=== PATIENT | male | born 1960 | race Caucasian/White ===

== ENCOUNTER 2021-10-12 14:57 | Inpatient (IN) | payer MEDICAID, OTHER ==
[~2021-10-12] VITALS: Ht 175.3 cm; Wt 31.8 kg
[2021-10-12 15:42] LABS: Basophils # (auto) 0 10 ^3/uL (0-0.2); Basophils % (auto) 0.2 % (0.0-2.0); Eosinophils # (auto) 0 10 ^3/uL (0-0.8); Hematocrit 38.8 % (41.0-53.0); Hemoglobin 13.8 g/dL (13.5-17.5); Lymphocytes # (auto) 0.7 10 ^3/uL (0.4-5.4); Lymphocytes % (auto) 6.8 % (10.0-50.0); Mean Corpuscular Hemoglobin 32.4 pg (28.0-32.0); Mean Corpuscular Hgb Conc. 35.7 g/dL (32.0-36.0); Mean Corpuscular Volume 90.9 fL (80.0-100.0); Monocytes # (auto) 0.3 10 ^3/uL (0-1.3); Monocytes % (auto) 3.1 % (0.0-12.0); Neutrophils # (auto) 8.9 10 ^3/uL (1.6-8.6); Neutrophils % (auto) 89.9 % (37.0-80.0); Red Blood Cells 4.27 10^6/uL (4.5-5.90); Red Cell Distribution Width 13.7 % (11.8-14.3); White Blood Cell 9.9 10^3/uL (4.4-10.8)
[2021-10-12 16:02] LABS: Albumin 2.6 g/dL (3.4-5.0); BUN/Creatinine Ratio 17.4; Calcium 8.7 mg/dL (8.5-10.1); Magnesium 2.6 mg/dL (1.6-2.6)
[2021-10-12 16:04] LABS: Bilirubin, Total 0.5 mg/dL (0.2-1.0); Total Protein 7.4 g/dL (6.4-8.2)
[2021-10-12 16:09] LABS: Potassium 2.8 mmol/L (3.5-5.1)
[2021-10-12] MEDS ORDERED: SODIUM CHLORIDE 0.9% 500 ML IV ONE (17:15)
[2021-10-12] MEDS ORDERED: ASPirin 325 MG TAB PO ONE (17:15)
[2021-10-12] MEDS ORDERED: PIPERACILLIN-TAZOB 3.375GM 100 ML IV ONE (18:45)
[2021-10-12] MEDS ORDERED: SODIUM CHLORIDE 0.9% 1,000 ML IV ONE (20:00)
[2021-10-12] MEDS ORDERED: SODIUM CHLORIDE 0.9% 1,000 ML IV SCH (20:30)
[2021-10-12] MEDS ORDERED: ONDANSETRON HCL 4 MG/2 ML VIAL IV PRN (20:45)
[2021-10-12] MEDS ORDERED: POTASSIUM CHL 20MEQ/100ML 100 ML IV ONE (20:45)
[2021-10-12] MEDS ORDERED: ACETAMINOPHEN 325 MG TAB PO PRN (20:45)
[2021-10-12] MEDS ORDERED: hydrALAZINE HCL 10 MG TAB PO PRN (20:45)
[2021-10-12] MEDS ORDERED: MORPHINE SULFATE INJ 2 MG/ml SYRG IV PRN (20:45)
[2021-10-12] MEDS ORDERED: ALBUTEROL SULF 2.5 MG/0.5ML(0.5%) NEB SOLN NEB PRN (20:45)
[2021-10-12] MEDS: PIPERACILLIN-TAZOB 3.375GM 100 ML IV SCH (22:00)
[2021-10-12] MEDS: HYDROcodone-ACET 5/325MG TAB PO PRN (22:24)
[2021-10-13] MEDS: POTASSIUM CHL 20MEQ/100ML 100 ML IV SCH ×2 (01:09→03:13)
[2021-10-13 01:55] LABS: Urine Bacteria NONE SEEN /hpf (None Seen); Urine Blood TRACE /uL (Negative); Urine Budding Yeast FEW /hpf (None Seen); Urine Hyaline Cast FEW /lpf (0 - 2); Urine Specific Gravity 1.012 (1.001-1.035); Urine WBC 7 /hpf (0 - 3)
[2021-10-13 02:36] VITALS: BP 132/78
[2021-10-13] MEDS ORDERED: POTASSIUM CHL 20MEQ/100ML 100 ML IV ONE (03:04)
[2021-10-13 03:07] LABS: Calcium 7.7 mg/dL (8.5-10.1); Potassium 3.2 mmol/L (3.5-5.1)
[2021-10-13] MEDS: SOD CHL 0.9%/ KCL 20MEQ 1,000 ML IV SCH ×3 (05:13→15:44)
[2021-10-13] MEDS: PIPERACILLIN-TAZOB 3.375GM 100 ML IV SCH ×3 (05:53→21:52)
[2021-10-13] MEDS: HYDROcodone-ACET 5/325MG TAB PO PRN ×2 (06:04→15:43)
[2021-10-13 09:09] LABS: Basophils # (auto) 0.1 10 ^3/uL (0-0.2); Basophils % (auto) 0.8 % (0.0-2.0); Eosinophils # (auto) 0 10 ^3/uL (0-0.8); Eosinophils % (auto) 0.4 % (0.0-7.0); Hematocrit 34.4 % (41.0-53.0); Hemoglobin 12.3 g/dL (13.5-17.5); Lymphocytes # (auto) 0.5 10 ^3/uL (0.4-5.4); Lymphocytes % (auto) 6.7 % (10.0-50.0); Mean Corpuscular Hemoglobin 32.6 pg (28.0-32.0); Mean Corpuscular Hgb Conc. 35.9 g/dL (32.0-36.0); Mean Corpuscular Volume 90.8 fL (80.0-100.0); Monocytes # (auto) 0.5 10 ^3/uL (0-1.3); Monocytes % (auto) 6.6 % (0.0-12.0); Neutrophils # (auto) 6.6 10 ^3/uL (1.6-8.6); Neutrophils % (auto) 85.5 % (37.0-80.0); Red Blood Cells 3.79 10^6/uL (4.5-5.90); Red Cell Distribution Width 13.6 % (11.8-14.3); White Blood Cell 7.8 10^3/uL (4.4-10.8)
[2021-10-13 09:22] LABS: Calcium 7.7 mg/dL (8.5-10.1); Potassium 3.4 mmol/L (3.5-5.1)
[2021-10-13 09:28] LABS: Albumin 2.1 g/dL (3.4-5.0); BUN/Creatinine Ratio 19.5; Bilirubin, Total 0.5 mg/dL (0.2-1.0); Total Protein 6.3 g/dL (6.4-8.2)
[2021-10-13 11:36] LABS: Creatinine, Urine 98 mg/dL (30.0-125.0); Sodium Urine 7 mmol/L (40-220)
[2021-10-13 11:37] LABS: Protein, Urine 97.4 mg/dL (0.0-11.9)
[2021-10-13 16:30] VITALS: BP 116/74
[2021-10-13] MEDS: SUCRALFATE 1 GM TAB PO SCH ×2 (17:00→21:02)
[2021-10-13] MEDS: PANTOPRAZOLE 40 MG TAB PO SCH (21:03)
[2021-10-13 22:00] VITALS: BP 119/82
[2021-10-14] VITALS (9 sets, daily range): BP systolic 137–154; BP diastolic 58–94
[2021-10-14] MEDS: SOD CHL 0.9%/ KCL 20MEQ 1,000 ML IV SCH ×3 (05:51→22:45)
[2021-10-14] MEDS: SUCRALFATE 1 GM TAB PO SCH ×4 (05:59→22:33)
[2021-10-14] MEDS: PIPERACILLIN-TAZOB 3.375GM 100 ML IV SCH ×3 (06:05→22:33)
[2021-10-14 09:03] LABS: Basophils # (auto) 0 10 ^3/uL (0-0.2); Basophils % (auto) 0.2 % (0.0-2.0); Eosinophils # (auto) 0.1 10 ^3/uL (0-0.8); Eosinophils % (auto) 1.6 % (0.0-7.0); Hematocrit 35.1 % (41.0-53.0); Hemoglobin 12.1 g/dL (13.5-17.5); Lymphocytes # (auto) 0.5 10 ^3/uL (0.4-5.4); Lymphocytes % (auto) 7.8 % (10.0-50.0); Mean Corpuscular Hemoglobin 31.7 pg (28.0-32.0); Mean Corpuscular Hgb Conc. 34.6 g/dL (32.0-36.0); Mean Corpuscular Volume 91.8 fL (80.0-100.0); Monocytes # (auto) 0.4 10 ^3/uL (0-1.3); Monocytes % (auto) 5.8 % (0.0-12.0); Neutrophils # (auto) 5.8 10 ^3/uL (1.6-8.6); Neutrophils % (auto) 84.6 % (37.0-80.0); Red Blood Cells 3.82 10^6/uL (4.5-5.90); White Blood Cell 6.8 10^3/uL (4.4-10.8)
[2021-10-14 09:16] LABS: Albumin 2.1 g/dL (3.4-5.0); Calcium 8.2 mg/dL (8.5-10.1); Potassium 3.7 mmol/L (3.5-5.1)
[2021-10-14 09:19] LABS: BUN/Creatinine Ratio 16.3; Bilirubin, Total 0.5 mg/dL (0.2-1.0); Total Protein 6.3 g/dL (6.4-8.2)
[2021-10-14 09:34] LABS: INR 1.06 (0.9-1.15); Partial Thromboplastin Time 29.8 sec (23.6-33.0)
[2021-10-14] MEDS ORDERED: fentaNYL CITRATE 100 MCG/2 ML VL ONE ×2 (10:19→11:22)
[2021-10-14] MEDS ORDERED: MIDAZOLAM HCL 2MG/2ML 2ml VIAL (1mg/ml) ONE ×2 (10:19→11:22)
[2021-10-14 12:09] LABS: Hepatitis A Ab IgM Negative; Hepatitis B Core IgM Negative; Hepatitis C Antibody Negative (Negative)
[2021-10-14] MEDS: PANTOPRAZOLE 40 MG TAB PO SCH ×2 (13:17→22:33)
[2021-10-14] MEDS: HYDROcodone-ACET 5/325MG TAB PO PRN ×2 (15:31→22:34)
[2021-10-14] MEDS: METOPROLOL SUCCINATE XL 50 MG TAB PO SCH (18:48)
[2021-10-15] MEDS: SOD CHL 0.9%/ KCL 20MEQ 1,000 ML IV SCH (01:38)
[2021-10-15] MEDS: HYDROcodone-ACET 5/325MG TAB PO PRN ×3 (04:35→16:34)
[2021-10-15 05:00] VITALS: BP 144/74
[2021-10-15] MEDS: PIPERACILLIN-TAZOB 3.375GM 100 ML IV SCH ×2 (06:43→13:35)
[2021-10-15] MEDS: SUCRALFATE 1 GM TAB PO SCH ×3 (06:43→17:35)
[2021-10-15 09:00] VITALS: BP 129/74
[2021-10-15] MEDS ORDERED: METO-6 PO (09:11)
[2021-10-15] MEDS ORDERED: AMOX500T86 PO (09:11)
[2021-10-15] MEDS: PANTOPRAZOLE 40 MG TAB PO SCH (09:44)
[2021-10-15] MEDS: METOPROLOL SUCCINATE XL 50 MG TAB PO SCH (09:45)
[2021-10-15 13:16] VITALS: BP 138/77
== END 2021-10-15 20:00 | disposition home health service (06) | DRG 463 ==
LOC: ER 14:57 → TELE 21:07 → TELE-WESTW 10-13 14:14
PROVIDERS: ADMIT Nurse Practitioner Family; ATTEND Internal Medicine
PROC: 0T763DZ Dilation of Right Ureter with Intraluminal Device, Percutaneous Approach (ICD-10-PCS; principal; 2021-10-14)
PROC: BT41ZZZ Ultrasonography of Right Kidney (ICD-10-PCS; 2021-10-14)
PROC: BT161ZZ Fluoroscopy of Right Ureter using Low Osmolar Contrast (ICD-10-PCS; 2021-10-14)
DX: N13.6 Pyonephrosis (principal); N17.0 Acute kidney failure with tubular necrosis; E87.1 Hypo-osmolality and hyponatremia; E88.09 Other disorders of plasma-protein metabolism, not elsewhere classified; Z20.822 Contact with and (suspected) exposure to COVID-19; J44.9 Chronic obstructive pulmonary disease, unspecified; K92.1 Melena; E87.6 Hypokalemia; J98.11 Atelectasis; N21.1 Calculus in urethra; N21.0 Calculus in bladder; E86.0 Dehydration; N18.9 Chronic kidney disease, unspecified; I12.9 Hypertensive chronic kidney disease with stage 1 through stage 4 chronic kidney disease, or unspecified chronic kidney disease; I25.10 Atherosclerotic heart disease of native coronary artery without angina pectoris; Z93.6 Other artificial openings of urinary tract status; I25.2 Old myocardial infarction
CPT/HCPCS: 36415; 50432; 70450; 71045; 71250; 74176; 74425; 76775; 76942; 80048; 80053; 80074; 81001; 82270; 82306; 82570; 83735; 83970; 84100; 84132; 84156; 84300; 84484; 85025; 85610; 85730; 87040; 87086; 93005; 94640; 96365; 96366; 96368; 97116; 97163; 97530; 99152; 99153; 99291; C2625; G0378; J2250; J2543; J3480